=== PATIENT | male | born 1955 | race Caucasian/White ===

== ENCOUNTER 2019-04-04 07:00 | Day surgery (SDC) | payer OTHER, SELFPAY ==
--- NOTE | 2019-04-04 | PATH_ITS ---
[facility] Accession Number: [id number] . 01 Material submitted: . PART A: gastrointestinal site - BIOPSY GASTRIC ANTRUM PART B: gastrointestinal site - GASTRIC POLYPS PART C: esophagus, E-G Junction - GE JUNCTION BIOPSY . 02 Diagnosis: A. Stomach, Antrum, Biopsy: Antral mucosa with reactive gastropathy and mild chronic inflammation. Negative for Helicobacter organisms by immunohistochemistry. Negative for intestinal metaplasia. Negative for dysplasia and malignancy. . B. Stomach, Polyps, Biopsies: Fundic gland polyps. No evidence of Helicobacter organisms on H/E stain. Negative for intestinal metaplasia. Negative for dysplasia and malignancy. . C. Gastroesophageal Junction, Biopsy: Squamocolumnar junctional mucosa with mild chronic inflammation. Negative for intestinal metaplasia by Alcian blue stain. Negative for dysplasia and malignancy. 04/06/2019 . 02 Electronically signed: . Estefani Siegel MD, Pathologist NPI- [id number] . 01 Gross description: . Part A: BIOPSY GASTRIC ANTRUM: Received in formalin are 2 fragment(s) of ramirez, soft tissue measuring 0.1 x 0.1 x 0.1 cm to 0.2 x 0.1 x 0.1 cm which is entirely submitted and submitted entirely in 1 cassette(s) Part B: GASTRIC POLYPS: Received in formalin are 4 fragment(s) of ramirez, soft tissue measuring 0.1 x 0.1 x 0.1 cm to 0.3 x 0.2 x 0.2 cm which is entirely submitted and submitted entirely in 1 cassette(s) Part C: GE JUNCTION BIOPSY: Received in formalin are 3 fragment(s) of ramirez, soft tissue measuring 0.1 x 0.1 x 0.1 cm to 0.3 x 0.2 x 0.1 cm which is entirely submitted and submitted entirely in 1 cassette(s) /DMC /DMC . 02 Microscopic: . A. An immunohistochemical stain was performed to evaluate for Helicobacter organisms and is negative. A HEAB stain was performed to evaluate for intestinal metaplasia and is negative. Both control stains showed appropriate reactivity. . C. An Alcian blue/PAS stain was performed to evaluate for intestinal metaplasia and is negative. The control stain showed appropriate reactivity. . * This test was developed and its performance characteristics determined by [employer]. It has not been cleared or approved by the U.S. Food and Drug Administration. The FDA has determined that such clearance or approval is not necessary. This test is used for clinical purposes. It should not be regarded as investigational or for research. . 02 Pathologist provided ICD-10: R10.9 . 02 CPT . 036808, 456313, 759538, 819255, [id number] Performed at: 01 [facility] [address] [address], [place], [place] [id number] MD Ki Josue MD Phone: [phone] Performed at: 02 [facility] [address] [place], [place] [id number] MD Estefani Siegel MD Phone: [phone]
[2019-04-04 07:31] VITALS: BP 183/89; PULSE 59; RESP 16; TEMP 36.3; O2SAT 98; BMI 27.1
[2019-04-04 07:36] VITALS: BMI 27.1
[2019-04-04] MEDS: SODIUM CHLORIDE 0.9% 1,000 ML 200 ML IV (07:41)
--- NOTE | 2019-04-04 07:57 | PM.HP.1 ---
History of Present Illness Date Patient Seen: 04/04/19 Time Patient Seen: 07:58 Chief complaint: [id number] Narrative: The patient is a gentleman here for an EGD and possible dilatation. He recently had food stuck in his esophagus. He has had this happen before. The last time was 4 years ago. He has never been dilated. Patient History Medical History Dysphagia (Acute) Elevated blood pressure reading (Acute) Sleep apnea (Acute) Surgical History H/O hernia repair (Acute) History of esophagogastroduodenoscopy (EGD) (Acute) Family History Father Hypertension Heart disease Diabetes mellitus Mother Cancer Social History marital status: household members: spouse Smoking Status: Never smoker alcohol intake: never substance use type: does not use Family & Social History Family History Father Hypertension Heart disease Diabetes mellitus Mother Cancer Social History: household members spouse Tobacco & Substance use: Smoking Status Never smoker alcohol intake never Meds Home Medications Medication Instructions Recorded Confirmed Type pantoprazole 20 mg tablet,delayed 20 mg PO DAILY #30 tab 02/17/19 04/04/19 Rx release ykdqwaxh-cumnz-tusvz-CF borate 1 tab PO DAILY 04/04/19 04/04/19 History [[facility]] multivitamin 2 tab PO DAILY 04/04/19 04/04/19 History mupirocin 1 applic TOPICAL DAILY 04/04/19 04/04/19 History vitamin D80-xsimm acid 1 tab PO DAILY 04/04/19 04/04/19 History Allergies Allergy/AdvReac Type Severity Reaction Status Date / Time No Known Drug Allergies Allergy Verified 04/04/19 07:13 Review of Systems Review of Systems All systems reviewed & are unremarkable except as noted in HPI and below Exam Vital Signs (past 8 hours): - 04/04/19 07:31 Temperature 97.4 F L Pulse Rate 59 L Respiratory Rate 16 Blood Pressure 183/89 H Pulse Oximetry 98 Oxygen Delivery Method Room Air Narrative Exam Narrative: Pleasant cooperative patient no apparent distress. Lungs are clear to auscultation. No rales or rhonchi. Heart regular rate and rhythm no murmur gallop. Abdomen is soft nontender without mass. No obvious hernias. Patient is alert and oriented x3. Assessment & Plan Assessment & Plan narrative: Patient for an EGD and possible dilatation. I have discussed the procedure with him including risks of bleeding and perforation. He appears to understand wishes to proceed.
--- NOTE | 2019-04-04 07:59 | PM.PREOP ---
Pre-operative Note Interval Note History & Physical reviewed/Exam performed by Physician: Yes Changes to H&P: No ASA Class (for procedural sedation): I
[2019-04-04] MEDS: LIDOCAINE 4% SOLN 50 ML 20 ML TOP (08:20)
[2019-04-04] MEDS: MIDAZOLAM 5 MG/5 ML VIAL IV (08:22)
[2019-04-04] MEDS: fentaNYL 250 MCG/5 ML INJ IV (08:22)
--- NOTE | 2019-04-04 08:34 | SUR.OPER ---
SAMPLE TRIAL BIOPSY FORCEP USED
[2019-04-04 08:44] VITALS: BP 143/78; PULSE 70; RESP 15; TEMP 37.2; O2SAT 94
--- NOTE | 2019-04-04 08:44 | SUR.OPER ---
patient tolerated procedure well vital signs noted on strips
--- NOTE | 2019-04-04 08:47 | P.OP.ENDO_ITS ---
Operative Date/Time/Diagnoses Date of procedure: 04/04/19 Time of procedure: 08:39 Pre-op diagnosis: Dysphagia. History of food bolus obstruction. Post-op diagnosis: same (Early Schatzki ring. Possible Matos's esophagus. Gastric ulceration. Gastric polyps probably fundic) Procedure & Clinicians Study performed: EGD with cold biopsy and through the scope balloon dilatation to 19 mm diameter(57 Albanian) Same procedure as scheduled: Yes Indications: History of esophageal obstruction from food Surgeon: John Garcia Procedure Notes SCOAP/Timeout: Performed Procedure in detail: The patient had topical anesthetic applied to oropharynx. She was placed in left lateral decubitus position and underwent IV sedation directed by the surgeon consisting of fentanyl and Versed. A bite block was inserted and the scope was advanced through it into the esophagus. The esophagus was unremarkable. GE junction was noted at 39 cm from the incisors. The stomach insufflated well. There were no lesions seen in the body, or at the incisura except a few scattered polypoid lesions with strip appeared to be gastric fundic polyps. In the antrum however there were 2 areas of discrete inflammation suggesting gastric ulceration. The pyloric channel was widely patent. The duodenum was unremarkable to the 4th part. The scope was brought back into the stomach and retroflexed. The proximal stomach normal in appearance except for few scattered polyps. Biopsies were taken of the ulcers and also of a few of the polyps. The scope was then brought into the distal esophagus where biopsies were taken to rule out Matos's esophagus. There was so is suggestion of an early Schatzki ring above the GE junction. I then passed a balloon dilator. Because the esophagus appeared to be widely patent I chose the largest of the balloon dilators and dilated 1st to 56 and then to 57 Albanian(18to19 mm diameter). The scope was then brought out through the esophagus again. No other lesions were seen. The scope was removed and the patient tolerated the procedure well. Scope withdrawal time: Not applicable Sedation minutes: 18 Findings: Matos's esophagus (Possible), gastric ulcer (Superficial in the antrum) and polyp (Gastric polyps. Probably fundic.) Specimen(s): other (Gastric ulcer. Gastric polyps. GE junction.) Complications: none Recommendations: Continue medication(s) (Proton pump inhibitor) Follow up: months (3) Disposition: PACU
--- NOTE | 2019-04-04 08:52 | SUR.PHASEI ---
Pt arrived in PACU awake. Denied pain. Water provided.
[2019-04-04 08:56] VITALS: BP 151/85; PULSE 62; RESP 14; TEMP 36.5; O2SAT 96
== END 2019-04-04 09:13 | disposition home or self-care (01) ==
PROVIDERS: PCP Family Medicine; Visit Provider Specialist
PROC: 0DJ08ZZ Inspection of Upper Intestinal Tract, Via Natural or Artificial Opening Endoscopic (ICD-10-PCS; CPT 43235; principal; 2019-04-04 07:45)
DX: K25.9 Gastric ulcer, unspecified as acute or chronic, without hemorrhage or perforation (principal); R13.10 Dysphagia, unspecified; G47.30 Sleep apnea, unspecified; K22.2 Esophageal obstruction; K31.7 Polyp of stomach and duodenum
CPT/HCPCS: 43249; 43239; 99152; J2250; J3010